=== PATIENT | male | born 1955 | race Caucasian/White ===

== ENCOUNTER 2021-02-22 09:10 | Inpatient (IN) | payer OTHER, SELFPAY ==
[2021-02-22] VITALS (14 sets, daily range): BP systolic 102–121; BP diastolic 59–68; PULSE 101–120; RESP 12–19; TEMP 36.7–37.5; O2SAT 90–94; BMI 25.7
--- NOTE | ~2021-02-22 | XR_ITS ---
EXAMINATION: XR chest 1V portable EXAM DATE: 02/22/2021 09:35 INDICATION: Weakness, fever, PUI, productive cough, symptoms one week. TECHNIQUE: Portable AP frontal chest x-ray was obtained. Comparison is made to prior examination from 03/06/2009. FINDINGS: There is moderate amount of ill-defined right upper lobe, left mid and lower lung zone airs pace disease likely acute infectious process, could be developing COVID pneumonia given history provi ded. Other etiologies also possible radiographically. No pneumothorax or pleural effusion. There are mild bony degenerative changes. Cardiomediastinal silhouette is normal. IMPRESSION: Moderate amount of ill-defined pneumonia. Reviewed, dictated and finalized at location A.
--- NOTE | ~2021-02-22 | CT_ITS ---
EXAMINATION: CTA chest PE protocol DATE: 02/22/2021 10:39 INDICATION: Recent travel to [place]. COVID person of interest. Assess for pulmonary embolism. TECHNIQUE: Computed tomography (CT) pulmonary angiogram of the chest was performed with 100 mL Omnipa que-350 intravenous contrast. Additional 3D reconstructions utilizing coronal maximum intensity proje ction (MIP) were performed. Automated exposure control and iterative reconstruction technique were em ployed. The dose-length product was 448.13 mGy-cm. COMPARISON: None FINDINGS: Excellent contrast opacification of the pulmonary arteries. There is mild streak artifact from dense contrast in the superior vena cava and right atrium. Mild scattered respiratory motion artifact which mildly decreases sensitivity in some of the smaller subsegmental pulmonary arteries at the left lowe r lung zone. No pulmonary embolism. Patchy centrilobular groundglass opacities and consolidation pred ominantly in the right upper lobe, lingula and left lower lobe with more subtle opacities in the righ t lower lobe consistent with multifocal pneumonia with pattern consistent with COVID. No septal line thickening to suggest pulmonary edema. No pleural effusion or pneumothorax. Heart size is normal. No pericardial effusion. Thoracic aorta is normal caliber with no dissection. No pathologically enlarged thoracic lymphadenopathy. Visualized upper abdomen is unremarkable. Severe lower cervical and mild t o moderate thoracic spondylosis. Several chronic compression fractures with mild vertebral body heigh t loss in the mid to lower thoracic spine. IMPRESSION: 1. Patchy bilateral lung disease with appearance most suspicious for COVID pneumonia. Differential wo uld include less likely pulmonary edema or hypersensitivity pneumonitis. 2. No pulmonary embolism. Reviewed, dictated and finalized at location A. IMPRESSION: 1. Patchy bilateral lung disease with appearance most suspicious for COVID pneu monia. Differential would include less likely pulmonary edema or hypersensitivi ty pneumonitis. 2. No pulmonary embolism.
--- NOTE | ~2021-02-22 | XR_ITS ---
EXAMINATION: XR chest 2V EXAM DATE: 02/26/2021 11:12 INDICATION: Pneumonia follow-up. Symptoms improved. TECHNIQUE: Frontal and lateral projections of the chest obtained and reviewed. Comparison is made to prior examination from 02/22/2021. FINDINGS: Again there is ill-defined bilateral airspace disease mostly in the right upper lobe and l eft lower lobe consistent with pneumonia. There may be slightly more confluent appearance to the righ t upper lobe opacity. Overall amount of airspace disease not appreciably changed. No pneumothorax or pleural effusion. Cardiomediastinal silhouette is normal. There are no osseous abnormalities identifi ed. IMPRESSION: Bilateral pneumonia, more confluence in the right upper lobe but overall quantity not si gnificant changed. Please note that radiographic improvement may lag behind clinical improvement. Reviewed, dictated and finalized at location A. IMPRESSION: Bilateral pneumonia, more confluence in the right upper lobe but o verall quantity not significant changed. Please note that radiographic improvem ent may lag behind clinical improvement.
--- NOTE | ~2021-02-22 | XR_ITS ---
XR abdomen/kub 1V DATE: 02/24/2021 23:09 INDICATION: Abdominal distention TECHNIQUE: Portable supine AP views COMPARISON: 03/05/2019 CT abdomen pelvis 03/06/2009 gallbladder ultrasound FINDINGS: Surgical clips, right upper quadrant, consistent with cholecystectomy. There are numerous nondilated gas distended small bowel segments as well as gaseous distention of the right colon. No apparent bowel obstruction No visceromegaly or significant abnormal calcification is noted. Patchy bilateral pulmonary infiltrates are noted. IMPRESSION: Patchy bilateral pulmonary infiltrates Nondilated gas containing segments of small and large bowel, without apparent obstruction Reviewed, dictated and finalized at Location A. Reviewed, dictated and finalized at location A. IMPRESSION: Patchy bilateral pulmonary infiltrates Nondilated gas containing segments of small and large bowel, without apparent o bstruction
--- NOTE | 2021-02-22 09:23 | ECG_ITS ---
Measurements Intervals [place] Rate: 114 P: 65 KS: 124 QRS: 70 QRSD: 86 T: 25 QT: 308 QTc: 425 Interpretive Statements SINUS TACHYCARDIA BORDERLINE ST-T WAVE ABNORMALITY- ANT/INF LEADS ABNORMAL ECG Electronically Signed On 02-22-2021 10:34:53 CDT by Jose Arredondo D.O.
[2021-02-22] MEDS: ACETAMINOPHEN 500 MG TABLET 1000 MG PO (09:30)
[2021-02-22] MEDS: SODIUM CHLORIDE 0.9% IV 1,000 ML 999 ML IV CONT ×2 (09:31→10:46)
--- NOTE | 2021-02-22 09:41 | ED.WEAKNESS ---
HPI - Weakness General Chief complaint: Weakness Stated complaint: Multiple Complaints Time Seen by Provider: 02/22/21 09:15 Source: patient Mode of arrival: ambulatory Limitations: no limitations History of Present Illness HPI Narrative: Patient is a 65-year-old male presenting from [place] urgent care for evaluation of fever, myalgias, cough. Patient states that he has felt unwell since February 19, when he developed rhinorrhea, congestion, chills. Patient with fever of T-max 101 Fahrenheit over the weekend. Patient reports shortness of breath, does report productive cough. He denies chest pain. No pleuritic pain. No rash or lower extremity swelling. Patient did recently travel to [place], return to the [facility] January 25. States that when he was in [place] he did develop a 2-day gastrointestinal illness with vomiting that resolved on its own. Patient is vaccinated for Covid, completed Medicare in a series in June of this year. Has not had a booster at this point. Patient states that he was swabbed at the urgent care with a negative antigen test, and they did send a PCR test as well. Patient reports decreased oral intake over the past 48 hours. He reports generalized fatigue, malaise, myalgias. Related Data Home Medications Medication Instructions Recorded Confirmed No Home Medications 02/22/21 02/22/21 Allergies Allergy/AdvReac Type Severity Reaction Status Date / Time ciprofloxacin Allergy Unknown Skin Verified 02/22/21 09:21 Reaction Review of Systems Review of Systems: CONSTITUTIONAL: Reports fever and chills EYES: Denies visual changes, redness, or discharge. ENT: Reports rhinorrhea and congestion, denies sore throat or otalgia CARDIOVASCULAR: Denies chest pain, palpitations, or edema. RESPIRATORY: Reports cough and shortness of breath GASTROINTESTINAL: Denies abdominal pain, nausea, vomiting, or diarrhea. GENITOURINARY: Denies dysuria or hematuria. SKIN: Denies rash or itching. MUSCULOSKELETAL: Denies back pain, joint pain, reports myalgias NEUROLOGIC: Denies headache, numbness, reports feeling diffusely weak without focal deficits [facility] Past Medical History Medical History (Updated 02/22/21 @ 11:20 by Viki Cagle MD) Leg fracture, left Family History Family History (Updated 03/16/18 @ 15:45 by DOCTOR UNKNOWN) Father Malignant neoplasm of prostate Social History Social History Smoking status: Never smoker Alcohol intake: current Exam Narrative: GENERAL: Awake, alert, conversant HEAD: Normocephalic, atraumatic. EYES: PERRLA and EOMI. ENT: Nares clear, no rhinorrhea or epistaxis. Mucous membranes moist. NECK: Supple. CHEST: No respiratory distress, breathing even and non labored, lungs are clear to auscultation bilaterally, no wheezing HEART: Tachycardic rate, sinus rhythm ABDOMEN:Non distended, non tender EXTREMITIES: Normal range of motion. No edema. SKIN: Warm, dry, no rash. NEURO:No focal deficits. Alert and oriented x3 Course Vital Signs Vital signs: Vital Signs Pulse Rate 120 H 02/22/21 09:16 Respiratory Rate 18 02/22/21 09:16 Temperature 37.4 C 02/22/21 09:18 Pulse Rate 111 H 02/22/21 10:00 Respiratory Rate 17 02/22/21 10:00 Blood Pressure 104/66 02/22/21 09:46 Pulse Oximetry 94 02/22/21 09:18 MDM - Weakness MDM Narrative Medical decision making narrative: Patient presenting for evaluation of cough, shortness of breath, myalgias. At the time of assessment, ABCs are intact, vital signs are notable for tachycardic rate, no hypotension, patient is afebrile. While speaking with me, oxygen saturations are 90 to 91% on room air. Patient is not in any significant respiratory distress. Exam is relatively reassuring although the patient does have rhinorrhea. IV access obtained and labs were drawn. Laboratory results are notable for a leukocytosis with left shift, very
[2021-02-22 09:51] LABS: Basophils Percent Auto 0.2 % (0.2-1.2); Immature Granulocyte Percent A 0.7 % (0-0.5); Immature Platelet Fraction Pct 9.1 % (0.9-11.2); Lymphocytes Absolute Auto 0.87 K/mm3 (0.9-3.2); Lymphocytes Percent Auto 6.4 % (18.3-44.2); Mean Corpuscular HGB Conc 33.3 g/dl (32-36); Mean Corpuscular Hemoglobin 33.9 pg (26-34); Mean Corpuscular Volume 101.7 fl (80-100); Mean Platelet Volume 11.3 fl (7.4-10.4); Monocytes Absolute Auto 0.4 K/mm3 (0.1-0.6); Monocytes Percent Auto 3.2 % (2.6-8.5); Neutrophils Absolute Auto 12.1 K/mm3 (1.3-6.7); Neutrophils Percent Auto 89.5 % (45.5-73.1); Platelet Count Result 93 k/mm3 (150-375); Red Blood Count 4.13 M/mm3 (4.6-6.20); Red Cell Distribution Width 13.5 % (11.5-14.5); White Blood Count 13.6 K/mm3 (4.5-10.0)
[2021-02-22 10:21] LABS: Alanine Aminotransferase 23 U/L (4-50); Alkaline Phosphatase 42 U/L (38-126); Anion Gap 9 mmol/L (8-16); Aspartate Amino Transferase 31 U/L (17-59); Bilirubin,Total 3.7 mg/dL (0.2-1.3); Blood Urea Nitrogen 17 mg/dL (9-20); Calcium 8.7 mg/dL (8.4-10.2); Carbon Dioxide 27 mmol/L (22-30); Chloride 101 mmol/L (98-107); Estimated CRCL calculation 65 ml/min; Estimated Glomerular Filt Rate > 60; Glucose 111 mg/dL (65-110); Potassium 3.7 mmol/L (3.4-5.0); Sodium 137 mmol/L (137-145)
[2021-02-22 10:21] LABS: Lactic Acid Reflex 2.3 mmol/L (0.7-2.1)
[2021-02-22 10:33] LABS: Troponin I < 0.012 ng/mL (0.000-0.034)
--- NOTE | 2021-02-22 11:57 | ADMGEN ---
This patient, Tobi Deras, was admitted to [facility] Surg Room 321-01. Patient/family oriented to hospital policies and general routines including ID bracelet, bed and alarms, visiting hours, pain management, procedures, bathroom and other care routines, personal items, smoking policy, room service/diet, and visiting hours. Information on how to activate the Rapid Response Team has been discussed. Patient/Family are encouraged to report perceived risks to care and to ask questions if they do not understand what they are told or what they should do.
[2021-02-22 12:02] LABS: Add Urine Microscopic? NO; Appearance Urine Clear (Clear); Bilirubin Urine Negative (Negative); Blood Urine Negative (Negative); Color Urine Yellow (Yellow); Glucose Urine UA Negative (Negative); Ketones Urine Negative (Negative); Leukocyte Esterase Ur Negative LEU/UL (Negative); Nitrate Urine Negative (Negative); Protein Urine Negative (Negative); Urobilinogen Urine Negative mg/dL (<2.0)
[2021-02-22 12:45] LABS: Reflex Lactic Acid Yes or No Add Lactic
[2021-02-22 13:14] LABS: Specific Grav Ur 1.047 (1.001-1.035)
[2021-02-22 13:16] LABS: Lactic Acid 2.4 mmol/L (0.7-2.1)
[2021-02-22] MEDS: SODIUM CHLORIDE 0.9% IV 500 ML 999 ML IV CONT (13:32)
[2021-02-22] MEDS: ACETAMINOPHEN 325 MG TABLET 650 MG PO ×2 (14:19→21:02)
--- NOTE | 2021-02-22 15:00 | PM.IMHP ---
H&P: HPI History of Present Illness Date/Time: 02/22/21 15:00 Chief Complaint: Fever, myalgias, cough. Narrative: This is a very pleasant, previously healthy 65-year-old male who presented to the emergency department earlier this morning from home for evaluation of fever, myalgias, and cough. He has not been feeling well for the last several days with multiple symptoms to include rhinorrhea, sinus congestion, chills, fever to 101? F, cough productive of dark phlegm, body aches, and mild shortness of breath. He was seen at a local urgent care at which time he had a negative rapid COVID test but he was referred to the emergency department for further evaluation. A chest x-ray done on arrival showed a moderate amount of ill-defined pneumonia and a subsequent CTA of the chest showed patchy bilateral lung disease suspicious for COVID pneumonia. The patient did receive the Moderna vaccination series this past spring though he has not yet had a booster at this point. He and his traveled to [place] last month and returned to the [facility] on January 25. He does mention having a GI illness for a couple of days while in [place] but that was self-limiting. He has not had any sick contacts or known exposure to those positive for COVID-19 but was recently at a large wedding. He denies anosmia and dysgeusia but does report that food has been tasting ?salty? for the past couple of days. He denies chest pain, pleuritic pain, wheezing, vomiting, and diarrhea. Review of Systems Review of Systems: Twelve systems were reviewed with pertinent positives and negatives as per HPI. Denies dysphagia and concerns for aspiration. No orthopnea, PND, or lower extremity edema. No history of venous thromboembolism. Except as documented, all other systems were reviewed and are negative. [facility] Past Medical History Medical History (Updated 02/22/21 @ 21:40 by Cornelia Burciaga PA-C) Hepatitis A (1992) History of seizure Leg fracture, left Surgical History Surgical History (Updated 02/22/21 @ 21:37 by Cornelia Burciaga PA-C) History of laparoscopic cholecystectomy History of left inguinal hernia repair History of open reduction and internal fixation (ORIF) procedure Left lower extremity. History of tonsillectomy Family History Family History Father Malignant neoplasm of prostate Social History Social History (Updated 02/22/21 @ 21:37 by Cronelia Burciaga PA-C) Social History: The patient lives in [place] with his Rashmi. He works for [employer]. Lifelong nonsmoker. No alcohol or illicit substance abuse. He designates his Rashmi as his surrogate decision maker and he wishes to be a full code. Meds Home Medications and Allergies Home Medications Medication Instructions Recorded Confirmed Type No Home Medications 02/22/21 02/22/21 History Allergies Allergy/AdvReac Type Severity Reaction Status Date / Time ciprofloxacin Allergy Unknown Skin Verified 02/22/21 12:11 Reaction Vital Signs Vital Signs - 24 hr 02/22/21 09:16 02/22/21 09:17 02/22/21 09:18 Temperature 99.3 F Pulse Rate 120 H 111 H 114 H Respiratory Rate 18 18 16 Blood Pressure 121/62 121/62 Pulse Oximetry 94 02/22/21 09:22 02/22/21 09:30 02/22/21 09:31 Temperature Pulse Rate 118 H 115 H 113 H Respiratory Rate 19 18 Blood Pressure 109/62 Pulse Oximetry 02/22/21 09:45 02/22/21 09:46 02/22/21 10:00 Temperature Pulse Rate 113 H 108 H 111 H Respiratory Rate 15 14 17 Blood Pressure 104/66 Pulse Oximetry 02/22/21 11:55 02/22/21 12:20 02/22/21 13:33 Temperature 98.1 F Pulse Rate 103 H 103 H 103 H Respiratory Rate 18 12 12 Blood Pressure 110/66 Pulse Oximetry 92 94 94 Exam Narrative: General: Moderately ill-appearing male sitting up in bed. Weight: 93.4 kg. BMI: 25.7. HEENT: Normocephalic, atraumatic. PERRL, EOMI. Sclerae anicteric. Conjunctiv
[2021-02-22 16:20] LABS: SARS-CoV-2 RNA PCR Negative
[2021-02-22] MEDS: ONDANSETRON INJ 4 MG/2 ML VIAL IV PUSH (21:04)
[2021-02-23 06:00] VITALS: BP 112/68; PULSE 100; RESP 22; TEMP 37.4; O2SAT 91
[2021-02-23 06:07] LABS: Hematocrit 35.4 % (42.0-52.0); Hemoglobin 11.8 g/dL (14.0-18.0); Immature Platelet Fraction Pct 8.5 % (0.9-11.2); Mean Corpuscular HGB Conc 33.3 g/dl (32-36); Mean Corpuscular Hemoglobin 33.9 pg (26-34); Mean Corpuscular Volume 101.7 fl (80-100); Mean Platelet Volume 10.6 fl (7.4-10.4); Platelet Count Result 78 k/mm3 (150-375); Red Blood Count 3.48 M/mm3 (4.6-6.20); Red Cell Distribution Width 13.5 % (11.5-14.5); White Blood Count 14.9 K/mm3 (4.5-10.0)
[2021-02-23 06:13] LABS: Lactic Acid Reflex 1.6 mmol/L (0.7-2.1)
[2021-02-23] MEDS: ACETAMINOPHEN 325 MG TABLET 650 MG PO ×3 (07:50→18:12)
[2021-02-23 08:00] VITALS: PULSE 100; RESP 22; O2SAT 91
[2021-02-23 08:09] LABS: Alanine Aminotransferase 20 U/L (4-50); Albumin Level 3.2 g/dL (3.5-5.1); Alkaline Phosphatase 39 U/L (38-126); Anion Gap 6 mmol/L (8-16); Aspartate Amino Transferase 32 U/L (17-59); Bilirubin Indirect 2.1 mg/dL (0-1.1); Bilirubin,Total 2.3 mg/dL (0.2-1.3); Blood Urea Nitrogen 16 mg/dL (9-20); CRP 31.7 mg/dL (<1.0); Carbon Dioxide 26 mmol/L (22-30); Chloride 105 mmol/L (98-107); Estimated CRCL calculation 88 ml/min; Estimated Glomerular Filt Rate > 60; Glucose 104 mg/dL (65-110); Lactate Dehydrogenase 452 U/L (313-618); Magnesium 1.6 mg/dL (1.6-2.3); Potassium 3.7 mmol/L (3.4-5.0); Sodium 137 mmol/L (137-145)
[2021-02-23] MEDS: guaiFENesin 600 MG/DEXTROMETHORPHAN 30 MG SR TAB 12 HR 1 TAB PO ×2 (09:00→20:58)
[2021-02-23] MEDS: ONDANSETRON INJ 4 MG/2 ML VIAL IV PUSH (11:04)
--- NOTE | 2021-02-23 11:59 | PC.NURSE ---
Called MD Del Angel resulting positive anaerobic blood culture result.
--- NOTE | 2021-02-23 12:26 | PM.IMPN ---
Progress Note: A&P Assessment and Plan (1) Sepsis: Code(s): A41.9 - Sepsis, unspecified organism Status: Acute (2) Pneumonia: Code(s): J18.9 - Pneumonia, unspecified organism Status: Acute (3) Thrombocytopenia: Code(s): D69.6 - Thrombocytopenia, unspecified Status: Acute (4) Person under investigation for COVID-19: Code(s): Z20.822 - Contact with and (suspected) exposure to COVID-19 Status: Acute (5) Hyperbilirubinemia: Code(s): E80.6 - Other disorders of bilirubin metabolism Status: Acute Additional Plan Sepsis Multifocal pneumonia suspicious for COVID but COVID test came back negative x2 the and pneumococcal antigen has been sent which is pending influenza test has been done in the urgent care per patient which came back negative as well COVID vaccinated with Moderna Recent travel to [place] Lactic acidosis this has resolved with hydration Person under investigation for COVID-19 negative test in the urgent care earlier yesterday Thrombocytopenia Elevated CRP and ferritin level Bacteremia with Gram-positive cocci in clusters 1/2 bottles could be a contaminant will cover with vancomycin until finalization Hyperbilirubinemia mostly indirect likely Gilbert's disease DVT prophylaxis SCDs due to thrombocytopenia Subjective Date/time seen: 02/23/21 12:26 Interval history: HPI:This is a very pleasant, previously healthy 65-year-old male who presented to the emergency department earlier this morning from home for evaluation of fever, myalgias, and cough. He has not been feeling well for the last several days with multiple symptoms to include rhinorrhea, sinus congestion, chills, fever to 101? F, cough productive of dark phlegm, body aches, and mild shortness of breath. He was seen at a local urgent care at which time he had a negative rapid COVID test but he was referred to the emergency department for further evaluation. A chest x-ray done on arrival showed a moderate amount of ill-defined pneumonia and a subsequent CTA of the chest showed patchy bilateral lung disease suspicious for COVID pneumonia. The patient did receive the Moderna vaccination series this past spring though he has not yet had a booster at this point. He and his traveled to [place] last month and returned to the [facility] on January 25. He does mention having a GI illness for a couple of days while in [place] but that was self-limiting. He has not had any sick contacts or known exposure to those positive for COVID-19 but was recently at a large wedding. He denies anosmia and dysgeusia but does report that food has been tasting ?salty? for the past couple of days. He denies chest pain, pleuritic pain, wheezing, vomiting, and diarrhea. Interval history: Is still have quite a bit of myalgia and nasal blockage. Remains afebrile off appetite is low does not have good taste or smell anything. Denies any shortness of breath no chest pain Exam Narrative: General: Ill appearing male sitting up in bed not in acute distress HEENT: Normocephalic, atraumatic. PERRL, EOMI. Sclerae anicteric. Conjunctiva mildly injected. Tacky mucous membranes. Neck: Supple. No adenopathy or JVD. Respiratory: Respirations are even and nonlabored. He is speaking in full sentences. Crackles heard throughout both lungs. Cardiovascular: Regular rate and rhythm with S1-S2. Gastrointestinal: Abdomen is soft, nontender, and nondistended with positive bowel sounds. Skin: Warm and dry. No rash or lesions on limited exam. Extremities: No cyanosis, clubbing, or edema. Radial and pedal pulses intact. Neurological: Alert. Cranial nerves 2-12 are grossly intact. No gross focal deficits to casual conversation. Psychiatric: Pleasant and cooperative with normal mood and affect. Judgment and insight intact. Objective Data Vital Signs Vital Signs: Vital Signs - 24 hr 02/22/21 13:33 02/22/21 17:47 02/22/21 22:00 Temperature 99.5 F 98.
[2021-02-23] MEDS: FLUTICASONE PROPIONATE 0.05% NA SPR 16 GM BTL (*BKC) 1 SPRAY NASAL ×2 (13:57→20:58)
[2021-02-23 14:00] VITALS: BP 113/76; PULSE 89; RESP 18; TEMP 36.7; O2SAT 95
--- NOTE | 2021-02-23 16:43 | PC.NURSE ---
UA and sputum collected and send to lab this shift
[2021-02-23] MEDS: BENZONATATE 100 MG CAPSULE 200 MG PO (17:13)
[2021-02-23] MEDS: SACCHAROMYCES BOULARDII 250 MG CAPSULE PO (20:58)
[2021-02-23] MEDS: SIMETHICONE 80 MG TAB.CHEW PO (20:58)
[2021-02-23] MEDS: ZOLPIDEM TARTRATE (*CRX) 5 MG TABLET PO (20:58)
[2021-02-23 22:00] VITALS: BP 105/65; PULSE 87; RESP 18; TEMP 36.2; O2SAT 96
[2021-02-24] MEDS: ACETAMINOPHEN 325 MG TABLET 650 MG PO ×2 (02:16→10:58)
[2021-02-24 06:00] VITALS: BP 117/70; PULSE 83; RESP 20; TEMP 36.4; O2SAT 95
[2021-02-24 06:10] LABS: Basophils Percent Auto 0.2 % (0.2-1.2); Eosinophils Percent Auto 0.2 % (0-4.4); Hematocrit 35.1 % (42.0-52.0); Hemoglobin 11.6 g/dL (14.0-18.0); Immature Granulocyte Absolute 0.05 K/mm3 (0.00-0.031); Immature Granulocyte Percent A 0.6 % (0-0.5); Lymphocytes Absolute Auto 0.94 K/mm3 (0.9-3.2); Lymphocytes Percent Auto 10.9 % (18.3-44.2); Mean Corpuscular Hemoglobin 33.7 pg (26-34); Mean Platelet Volume 10.7 fl (7.4-10.4); Monocytes Absolute Auto 0.2 K/mm3 (0.1-0.6); Monocytes Percent Auto 2.6 % (2.6-8.5); Neutrophils Absolute Auto 7.4 K/mm3 (1.3-6.7); Neutrophils Percent Auto 85.5 % (45.5-73.1); Platelet Count Result 79 k/mm3 (150-375); Red Blood Count 3.44 M/mm3 (4.6-6.20); Red Cell Distribution Width 13.4 % (11.5-14.5); White Blood Count 8.6 K/mm3 (4.5-10.0)
[2021-02-24 06:14] LABS: Alanine Aminotransferase 19 U/L (4-50); Albumin Level 3.2 g/dL (3.5-5.1); Alkaline Phosphatase 42 U/L (38-126); Anion Gap 8 mmol/L (8-16); Aspartate Amino Transferase 38 U/L (17-59); Bilirubin,Total 1.8 mg/dL (0.2-1.3); Blood Urea Nitrogen 14 mg/dL (9-20); Calcium 8.2 mg/dL (8.4-10.2); Carbon Dioxide 24 mmol/L (22-30); Chloride 105 mmol/L (98-107); Estimated CRCL calculation 97 ml/min; Estimated Glomerular Filt Rate > 60; Glucose 96 mg/dL (65-110); Potassium 3.7 mmol/L (3.4-5.0); Sodium 137 mmol/L (137-145)
[2021-02-24 08:00] VITALS: O2SAT 95
[2021-02-24] MEDS: BENZONATATE 100 MG CAPSULE 200 MG PO ×3 (09:00→16:26)
[2021-02-24] MEDS: FLUTICASONE PROPIONATE 0.05% NA SPR 16 GM BTL (*BKC) 1 SPRAY NASAL ×2 (09:01→21:36)
[2021-02-24] MEDS: SACCHAROMYCES BOULARDII 250 MG CAPSULE PO ×3 (09:01→16:26)
[2021-02-24] MEDS: guaiFENesin 600 MG/DEXTROMETHORPHAN 30 MG SR TAB 12 HR 1 TAB PO ×2 (09:01→21:34)
--- NOTE | 2021-02-24 10:07 | PM.IMPN ---
Progress Note: A&P Assessment and Plan (1) Sepsis: Code(s): A41.9 - Sepsis, unspecified organism Status: Acute (2) Pneumonia: Code(s): J18.9 - Pneumonia, unspecified organism Status: Acute (3) Thrombocytopenia: Code(s): D69.6 - Thrombocytopenia, unspecified Status: Acute (4) Person under investigation for COVID-19: Code(s): Z20.822 - Contact with and (suspected) exposure to COVID-19 Status: Acute (5) Hyperbilirubinemia: Code(s): E80.6 - Other disorders of bilirubin metabolism Status: Acute Additional Plan 02/23/21 Sepsis Multifocal pneumonia suspicious for COVID but COVID test came back negative x2 the Junel and pneumococcal antigen has been sent which is pending influenza test has been done in the urgent care per patient which came back negative as well COVID vaccinated with Moderna Recent travel to [place] Lactic acidosis this has resolved with hydration Person under investigation for COVID-19 negative test in the urgent care earlier yesterday Thrombocytopenia Elevated CRP and ferritin level Bacteremia with Gram-positive cocci in clusters 1/2 bottles could be a contaminant will cover with vancomycin until finalization Hyperbilirubinemia mostly indirect likely Gilbert's disease DVT prophylaxis SCDs due to thrombocytopenia 02/24/21 Patient doing okay have reviewed with him possible differential diagnosis and the need for further ongoing workup. Patient is in agreement. Repeat COVID PCR Legionella, mycoplasma, influenza DC vancomycin Patient denies recurrence difficulty swallowing however does report that recently had difficulty swallowing sandwich which improved by him slowing down and chewing the food more. Silent aspiration is still for consideration Will order in BS and follow-up with GI depending on results monitor VS am labs supportive care Subjective Date/time seen: 02/24/21 10:07 Patient doing okay continues to have respiratory symptoms unclear source. Pulmonary has been consulted will continue further workup as per their direction. Exam Narrative: GEN: NAD, AAOx3 cooperative HEENT: NCAT, MMM, EOMI Neck: no JVD Lungs: No acute distress symmetric chest rise Abd: soft, NT, ND Ext: moves all, no cyanosis, no clubbing, no edema Neuro: Cranial nerves intact no focal neurological deficits appreciated Psych: Mood and affect congruent judgment insight intact Objective Data Vital Signs Vital Signs: Vital Signs - 24 hr 02/23/21 14:00 02/23/21 22:00 02/24/21 06:00 Temperature 98.1 F 97.2 F L 97.5 F L Pulse Rate 89 87 83 Respiratory Rate 18 18 20 Blood Pressure 113/76 105/65 117/70 Pulse Oximetry 95 96 95 Intake/Output Intake/Output: Intake & Output 02/21/21 02/22/21 02/23/21 02/24/21 23:59 23:59 23:59 23:59 Intake Total 3330 1510 850 Output Total 400 Balance 3330 1110 850 Meds/Results Medications: Active Medications Generic Name Dose Route Start Last Admin Trade Name Freq PRN Reason Stop Dose Admin Acetaminophen 650 mg 02/22/21 11:12 02/24/21 02:16 Acetaminophen 325 Mg Tablet PO 650 mg Q4H PRN Administration Mild Pain (1-3) or Fever Albuterol 2 puff 02/22/21 21:41 Albuterol Sulfate (*Sp) Aerosol 1 Puff INHALATION QIDRT PRN Shortness Of Breath Benzonatate 200 mg 02/23/21 17:00 02/24/21 09:00 Benzonatate 100 Mg Capsule PO 200 mg TID APRIL Administration Fluticasone Propionate 1 spray 02/23/21 12:50 02/24/21 09:01 Fluticasone Propionate 0.05% Na Spr 16 Gm Btl (*Bkc) NASAL 1 spray Q12HR APRIL Administration Guaifenesin/Dextromethorphan 1 tab 02/23/21 09:00 02/24/21 09:01 Guaifenesin 600 Mg/Dextromethorphan 30 Mg Sr Tab 12 Hr PO 1 tab Q12HR APRIL Administration Ceftriaxone Sodium/Dextrose 1 gm in 50 mls @ 100 mls/hr 02/23/21 09:00 02/24/21 08:57 Rocephin 1 Gm/D5w 50 Ml IVPB 100 mls/hr Q24H APRIL Administration Azithromycin 500 mg in 250 mls @ 250 m
[2021-02-24 12:25] LABS: Folic Acid 12.8 ng/mL (2.76->20)
--- NOTE | 2021-02-24 12:46 | PM.CNPUL ---
Assessment and Plan Assessment and plan (1) Pneumonia: Qualifiers: Pneumonia type: due to unspecified organism Laterality: bilateral Lung location: lower lobe of lung Qualified Code(s): J18.9 - Pneumonia, unspecified organism Code(s): J18.9 - Pneumonia, unspecified organism Status: Acute Assessment and Plan: 65-year-old man with a 3 day history of muscle aches, fever, cough and nasal congestion, bilateral pulmonary infiltrates with distribution in the right upper lobe and also left lower lobe. The patient had a negative PCR test but the clinical presentation and CT findings are compatible with possible COVID-19 infection. The differential diagnosis also includes community acquired or atypical pneumonia related to viral or other organisms like legionella, mycoplasma. Given history of dysphagia I would also consider possible aspiration pneumonitis although nasal congestion is not usual symptom in that setting. Plan is as follows: I would check MRSA screening and discontinue vancomycin. Repeat PCR testing for COVID-19 infection. W/up for pneumococcal pneumonia, Legionella and Mycoplasma if Covid 19 PCR is negative. Consider work up of dysphagia and start patient on sc heparin for DVT prophylaxis. Case was discussed with hospitalist. (2) Dysphagia: Qualifiers: Dysphagia type: unspecified Qualified Code(s): R13.10 - Dysphagia, unspecified Code(s): R13.10 - Dysphagia, unspecified Status: Acute History of Present Illness History of Present Illness Consult date: 02/24/21 Chief complaint: Pneumonia Narrative: This 65-year-old man presented with 3 day history of muscle aches fever nasal congestion and cough. Patient was in his usual was state of health until 3 days prior to admission when he started having muscle aches nasal congestion mild cough mostly nonproductive and fatigue. The patient was seen at a local urgent care where a COVID test was negative. He then presented to the emergency room were underwent further testing with chest CT that showed bilateral patchy infiltrates primarily in the right upper lobe and also in the left lower lobe, suspicious for COVID 19 infection. Patient was started on triple antibiotics for possible community-acquired pneumonia. COVID PCR test came back negative. Currently the patient is doing better, has no fever but continues to have nasal congestion and mild coughing. He is not on supplemental oxygen. His previous medical history was essentially negative. He traveled to [place] approximately 1 month ago. He has been vaccinated with the Moderna vaccine in June of 2020. He has not had the 3rd dose yet. Upon questioning the patient stated that he has had intermittent dysphagia especially when eating sandwiches. He has no history of choking of food or cough with during meals. He also has acid reflux disease which is mostly intermittent, on no treatment Review of Systems Review of Systems: The patient reported no weight changes. Patient has had good appetite. Patient has no shortness of Breath, chest pain palpitations or orthopnea. Patient described some abdominal discomfort on and off. He had diarrhea when in [place] last month. Patient has no urinary complaints. Patient not having lower extremity edema. [facility] Past Medical History Medical History (Updated 02/24/21 @ 12:56 by Franky Forbes MD) Hepatitis A (1992) History of seizure Leg fracture, left Surgical History Surgical History (Updated 02/22/21 @ 21:37 by Cornelia Burciaga PA-C) History of laparoscopic cholecystectomy History of left inguinal hernia repair History of open reduction and internal fixation (ORIF) procedure Left lower extremity. History of tonsillectomy Family History Family History Father Malignant neoplasm of prostate Social History Social History (Updated 02/22/21 @ 21:37 by Cornelia Hatfield
[2021-02-24 14:00] VITALS: BP 113/69; PULSE 73; RESP 20; TEMP 36.8; O2SAT 96
[2021-02-24 20:00] VITALS: BP 120/67; PULSE 81; RESP 18; TEMP 36.7; O2SAT 96
[2021-02-24] MEDS: ONDANSETRON INJ 4 MG/2 ML VIAL IV PUSH (21:34)
[2021-02-24 23:32] VITALS: BP 117/52; PULSE 87; RESP 18; TEMP 36.8; O2SAT 98
[2021-02-25] VITALS (7 sets, daily range): BP systolic 107–126; BP diastolic 56–77; PULSE 80–93; RESP 17–20; TEMP 36.4–36.9; O2SAT 95–100
[2021-02-25] MEDS: MELATONIN 5 MG TABLET PO ×2 (00:23→20:51)
[2021-02-25] MEDS: CALCIUM CARBONATE (TUMS) 500 MG (200 MG ELEMENTAL) PO ×3 (00:23→20:26)
[2021-02-25] MEDS: FLUTICASONE PROPIONATE 0.05% NA SPR 16 GM BTL (*BKC) 1 SPRAY NASAL ×2 (08:27→20:52)
[2021-02-25] MEDS: SACCHAROMYCES BOULARDII 250 MG CAPSULE PO ×3 (08:32→18:30)
[2021-02-25] MEDS: ENOXAPARIN 40 MG/0.4 ML SYRINGE SUB-Q (08:32)
[2021-02-25] MEDS: guaiFENesin 600 MG/DEXTROMETHORPHAN 30 MG SR TAB 12 HR 1 TAB PO ×2 (08:32→20:51)
[2021-02-25] MEDS: BENZONATATE 100 MG CAPSULE 200 MG PO ×3 (08:32→18:30)
[2021-02-25] MEDS: ACETAMINOPHEN 325 MG TABLET 650 MG PO (08:41)
--- NOTE | 2021-02-25 09:31 | PCSTNOTE ---
Therapist saw this patient at bedside during his breakfast meal and while taking pills. A Modified Barium Swallow (MBS) study was ordered and therapist wanted to discuss patient's complaints prior to MBS. Patient took one bite of hines and placed on tongue and immediately coughed; stated he was not attempting to swallow at that time. Took several bites of omani toast, pills, and several sips of orange juice in my presence. No coughing was noted again during the swallows. Patient was instructed in the use of head flexion to assist with swallowing; he demonstrated understanding. Patient was noted to have somewhat immediate burping after swallowing and complained of feeling either the food or acid reflux in the mid-chest area. Therapist discussed observations with Dr. Holloway who recommended GI consult and holding off on MBS at this time. No further Speech Therapy is indicated however therapist will continue to review chart and consult with nursing as indicated.
--- NOTE | 2021-02-25 09:37 | PCSTNOTE ---
Therapist attempted to complete Bedside Swallow Evaluation and Communication Evaluation however nurse was present and administered patient's Lovenox shot to the belly, hoping to arouse and awaken the patient and nurse reported patient did not flinch. Requested ST to wait until later. Nurse will notify therapist if patient arouses enough to attempt evaluations.
--- NOTE | 2021-02-25 11:02 | PM.IMPN ---
Progress Note: A&P Assessment and Plan (1) Sepsis: Code(s): A41.9 - Sepsis, unspecified organism Status: Acute (2) Pneumonia: Qualifiers: Laterality: bilateral Lung location: lower lobe of lung Pneumonia type: due to unspecified organism Qualified Code(s): J18.9 - Pneumonia, unspecified organism Code(s): J18.9 - Pneumonia, unspecified organism Status: Acute (3) Thrombocytopenia: Code(s): D69.6 - Thrombocytopenia, unspecified Status: Acute (4) Person under investigation for COVID-19: Code(s): Z20.822 - Contact with and (suspected) exposure to COVID-19 Status: Acute (5) Hyperbilirubinemia: Code(s): E80.6 - Other disorders of bilirubin metabolism Status: Acute Additional Plan 02/23/21 Sepsis Multifocal pneumonia suspicious for COVID but COVID test came back negative x2 the and pneumococcal antigen has been sent which is pending influenza test has been done in the urgent care per patient which came back negative as well COVID vaccinated with Moderna Recent travel to [place] Lactic acidosis this has resolved with hydration Person under investigation for COVID-19 negative test in the urgent care earlier yesterday Thrombocytopenia Elevated CRP and ferritin level Bacteremia with Gram-positive cocci in clusters 1/2 bottles could be a contaminant will cover with vancomycin until finalization Hyperbilirubinemia mostly indirect likely Gilbert's disease DVT prophylaxis SCDs due to thrombocytopenia 02/24/21 Patient doing okay have reviewed with him possible differential diagnosis and the need for further ongoing workup. Patient is in agreement. Repeat COVID PCR Legionella, mycoplasma, influenza DC vancomycin Patient denies recurrence difficulty swallowing however does report that recently had difficulty swallowing sandwich which improved by him slowing down and chewing the food more. Silent aspiration is still for consideration Will order in BS and follow-up with GI depending on results monitor VS am labs supportive care 02/25/21 no overnight events pending results of atypical PNA labs cont current care seen by GI anticipate EGD after recovery from acute medical process pureed diet /liq diet for now pantoprazole/TUMS Subjective Date/time seen: 02/25/21 17:57 feeling better today, mentally more alert, no longer feels sick no overnight events Exam Narrative: GEN: NAD, AAOx3 cooperative HEENT: NCAT, MMM, EOMI Neck: no JVD Lungs: No acute distress symmetric chest rise Abd: soft, NT, ND Ext: moves all, no cyanosis, no clubbing, no edema Neuro: Cranial nerves intact no focal neurological deficits appreciated Psych: Mood and affect congruent judgment insight intact Objective Data Vital Signs Vital Signs: Vital Signs - 24 hr 02/24/21 14:00 02/24/21 20:00 02/24/21 23:32 Temperature 98.2 F 98.0 F 98.3 F Pulse Rate 73 81 87 Respiratory Rate 20 18 18 Blood Pressure 113/69 120/67 117/52 L Pulse Oximetry 96 96 98 02/25/21 04:00 02/25/21 06:00 Temperature 97.6 F 98.4 F Pulse Rate 89 80 Respiratory Rate 20 17 Blood Pressure 107/58 L 108/56 L Pulse Oximetry 96 98 Intake/Output Intake/Output: Intake & Output 02/22/21 02/23/21 02/24/21 02/25/21 23:59 23:59 23:59 23:59 Intake Total 3330 1510 2450 250 Output Total 400 Balance 3330 1110 2450 250 Meds/Results Medications: Active Medications Generic Name Dose Route Start Last Admin Trade Name Freq PRN Reason Stop Dose Admin Acetaminophen 650 mg 02/22/21 11:12 02/25/21 08:41 Acetaminophen 325 Mg Tablet PO 650 mg Q4H PRN Administration Mild Pain (1-3) or Fever Albuterol 2 puff 02/22/21 21:41 Albuterol Sulfate (*Sp) Aerosol 1 Puff INHALATION QIDRT PRN Shortness Of Breath Benzonatate 200 mg 02/23/21 17:00 02/25/21 08:32 Benzonatate 100 Mg Capsule PO 200 mg TID APRIL Administration Calcium Carbonate 200 mg 02/24/21 23:
[2021-02-25 12:15] LABS: Basophils Percent Auto 0.3 % (0.2-1.2); Eosinophils Percent Auto 0.3 % (0-4.4); Hematocrit 34.2 % (42.0-52.0); Hemoglobin 11.7 g/dL (14.0-18.0); Immature Granulocyte Absolute 0.05 K/mm3 (0.00-0.031); Immature Granulocyte Percent A 0.8 % (0-0.5); Immature Platelet Fraction Pct 10.3 % (0.9-11.2); Lymphocytes Absolute Auto 0.99 K/mm3 (0.9-3.2); Mean Corpuscular HGB Conc 34.2 g/dl (32-36); Mean Corpuscular Hemoglobin 33.7 pg (26-34); Mean Corpuscular Volume 98.6 fl (80-100); Mean Platelet Volume 11.3 fl (7.4-10.4); Monocytes Absolute Auto 0.3 K/mm3 (0.1-0.6); Monocytes Percent Auto 4.7 % (2.6-8.5); Neutrophils Absolute Auto 4.8 K/mm3 (1.3-6.7); Neutrophils Percent Auto 77.9 % (45.5-73.1); Platelet Count Result 113 k/mm3 (150-375); Red Blood Count 3.47 M/mm3 (4.6-6.20); Red Cell Distribution Width 13.2 % (11.5-14.5); White Blood Count 6.2 K/mm3 (4.5-10.0)
[2021-02-25 12:34] LABS: Anion Gap 9 mmol/L (8-16); Blood Urea Nitrogen 13 mg/dL (9-20); Calcium 8.4 mg/dL (8.4-10.2); Carbon Dioxide 22 mmol/L (22-30); Chloride 107 mmol/L (98-107); Estimated CRCL calculation 108 ml/min; Estimated Glomerular Filt Rate > 60; Glucose 123 mg/dL (65-110); Magnesium 2.2 mg/dL (1.6-2.3); Potassium 3.4 mmol/L (3.4-5.0); Sodium 138 mmol/L (137-145)
--- NOTE | 2021-02-25 15:33 | WPDGICN ---
Assessment and Plan Assessment and plan (1) Dysphagia: Qualifiers: Dysphagia type: unspecified Qualified Code(s): R13.10 - Dysphagia, unspecified Code(s): R13.10 - Dysphagia, unspecified Status: Acute Assessment and Plan: Patient's symptoms of dysphagia with food particularly more solid food catching mid substernal portion the chest suggest esophageal narrowing. I suspect he has an esophageal web based on his dyspepsia which may represent acid reflux. Plan is for EGD and dilatation. This can be performed as an outpatient. I would wait until his oxygenation has improved in his pneumonia has cleared. This can be done as an outpatient but will reassess him over the next couple days if he remains hospitalized. (2) Indigestion: Code(s): K30 - Functional dyspepsia Status: Acute Assessment and Plan: Patient does complain of indigestion. I suspect this may represent underlying acid reflux. I will start him on Protonix 40 mg p.o. daily as this may help his swallowing as well as his indigestion. (3) Pneumonia: Qualifiers: Laterality: bilateral Lung location: lower lobe of lung Pneumonia type: due to unspecified organism Qualified Code(s): J18.9 - Pneumonia, unspecified organism Code(s): J18.9 - Pneumonia, unspecified organism Status: Acute Assessment and Plan: Patient with pneumonia that has left him somewhat hypoxic. Currently undergoing evaluation to exclude COVID pneumonia. I would defer endoscopic evaluation until his pneumonia has improved to some degree. GI Consult Note Consult date/time: 02/25/21 15:33 HPI: Tobi Deras is a 65 year old male I am asked to see because of dysphagia. Patient reports he has had dysphagia for many years. He currently is admitted the hospital because of increasing shortness of breath. He was found to have to have pulmonic infiltrates on his chest x-ray. He is currently undergoing therapy with antibiotics. And testing is being completed to exclude COVID pneumonia. Patient reports has difficulty swallowing includes anything solid. Bread typically will hang up in the mid chest. Sometimes to the point where he will have difficulty breathing if he eats 1 more bite. This also happens with larger pieces of meat. Typically this will happen in the upper mid chest area. Patient does note occasional indigestion in the epigastric portion of the abdomen. Review of Systems Review of Systems: All systems reviewed & are unremarkable except as noted in HPI and below PMFSH Past Medical History Medical History (Updated 02/25/21 @ 15:37 by Markie Walls MD) Hepatitis A (1992) History of seizure Leg fracture, left Surgical History Surgical History (Updated 02/22/21 @ 21:37 by Cornelia Burciaga PA-C) History of laparoscopic cholecystectomy History of left inguinal hernia repair History of open reduction and internal fixation (ORIF) procedure Left lower extremity. History of tonsillectomy Family History Family History Father Malignant neoplasm of prostate Social History Social History (Updated 02/22/21 @ 21:37 by Cornelia Burciaga PA-C) Social History: The patient lives in [place] with his Rashmi. He works for [employer]. Lifelong nonsmoker. No alcohol or illicit substance abuse. He designates his Rashmi as his surrogate decision maker and he wishes to be a full code. Meds Home Medications and Allergies Home Medications Medication Instructions Recorded Confirmed Type melatonin 10 mg PO HS 02/24/21 02/24/21 History Allergies Allergy/AdvReac Type Severity Reaction Status Date / Time ciprofloxacin Allergy Unknown Skin Verified 02/22/21 12:11 Reaction Vital Signs Vital Signs - 24 hr 02/24/21 20:00 02/24/21 23:32 02/25/21 04:00 Temperature 98.0 F 98.3 F 97.6 F Pulse Rate 81 87 89 Respiratory
[2021-02-25 19:16] LABS: Influenza Control Positive
[2021-02-25 22:24] LABS: SARS-CoV-2 RNA PCR Negative
[2021-02-26 04:01] VITALS: BP 122/70; PULSE 82; RESP 18; TEMP 36.3; O2SAT 99
[2021-02-26 06:34] LABS: Basophils Percent Auto 0.4 % (0.2-1.2); Eosinophils Percent Auto 0.4 % (0-4.4); Hematocrit 35.3 % (42.0-52.0); Hemoglobin 11.8 g/dL (14.0-18.0); Immature Granulocyte Absolute 0.06 K/mm3 (0.00-0.031); Immature Granulocyte Percent A 1.2 % (0-0.5); Lymphocytes Absolute Auto 1.08 K/mm3 (0.9-3.2); Lymphocytes Percent Auto 22.1 % (18.3-44.2); Mean Corpuscular HGB Conc 33.4 g/dl (32-36); Mean Corpuscular Hemoglobin 33.1 pg (26-34); Mean Corpuscular Volume 99.2 fl (80-100); Mean Platelet Volume 11.1 fl (7.4-10.4); Monocytes Absolute Auto 0.4 K/mm3 (0.1-0.6); Monocytes Percent Auto 7.6 % (2.6-8.5); Neutrophils Absolute Auto 3.3 K/mm3 (1.3-6.7); Neutrophils Percent Auto 68.3 % (45.5-73.1); Platelet Count Result 143 k/mm3 (150-375); Red Blood Count 3.56 M/mm3 (4.6-6.20); Red Cell Distribution Width 13.1 % (11.5-14.5); White Blood Count 4.9 K/mm3 (4.5-10.0)
[2021-02-26 06:48] LABS: Anion Gap 7 mmol/L (8-16); Blood Urea Nitrogen 12 mg/dL (9-20); Calcium 8.5 mg/dL (8.4-10.2); Carbon Dioxide 25 mmol/L (22-30); Chloride 106 mmol/L (98-107); Estimated CRCL calculation 108 ml/min; Estimated Glomerular Filt Rate > 60; Glucose 99 mg/dL (65-110); Magnesium 2.1 mg/dL (1.6-2.3); Potassium 3.5 mmol/L (3.4-5.0); Sodium 138 mmol/L (137-145)
[2021-02-26] MEDS: BENZONATATE 100 MG CAPSULE 200 MG PO ×3 (08:20→16:15)
[2021-02-26] MEDS: ACETAMINOPHEN 325 MG TABLET 650 MG PO ×2 (08:20→12:32)
[2021-02-26] MEDS: CALCIUM CARBONATE (TUMS) 500 MG (200 MG ELEMENTAL) PO (08:20)
[2021-02-26] MEDS: PANTOPRAZOLE 40 MG TABLET PO (08:21)
[2021-02-26] MEDS: SACCHAROMYCES BOULARDII 250 MG CAPSULE PO ×3 (08:21→16:16)
[2021-02-26] MEDS: FLUTICASONE PROPIONATE 0.05% NA SPR 16 GM BTL (*BKC) 1 SPRAY NASAL (08:21)
[2021-02-26] MEDS: guaiFENesin 600 MG/DEXTROMETHORPHAN 30 MG SR TAB 12 HR 1 TAB PO (08:21)
[2021-02-26] MEDS: ENOXAPARIN 40 MG/0.4 ML SYRINGE SUB-Q (08:22)
[2021-02-26 08:36] LABS: Legionella pneumophila Ag Ur Not Detected (Not Detected)
[2021-02-26 09:50] LABS: D Dimer 0.97 ug/mL (<0.48)
--- NOTE | 2021-02-26 10:05 | WPDGIPROGNO ---
Progress Note: A&P Assessment and Plan (1) Indigestion: Code(s): K30 - Functional dyspepsia Status: Acute Assessment and Plan: Indigestion improved on PPI therapy. Suspect he has underlying GE reflux. Will continue Protonix 40mg p.o. daily along with anti-reflux measures. (2) Dysphagia: Qualifiers: Dysphagia type: unspecified Qualified Code(s): R13.10 - Dysphagia, unspecified Code(s): R13.10 - Dysphagia, unspecified Status: Acute Assessment and Plan: Because of chronic dysphagia EGD is indicated to exclude esophageal narrowing. I would defer this until pneumonia is treated. Plan for him to schedule this through the GI office after discharge. (3) Pneumonia: Qualifiers: Laterality: bilateral Lung location: lower lobe of lung Pneumonia type: due to unspecified organism Qualified Code(s): J18.9 - Pneumonia, unspecified organism Code(s): J18.9 - Pneumonia, unspecified organism Status: Acute Assessment and Plan: Pneumonia current active problem appears rather significant. COVID is being evaluated in under consideration. I would defer endoscopy until pneumonia is treated plan EGD as an outpatient electively. Subjective Date/time seen: 02/26/21 10:05 Patient unchanged this morning. Still somewhat short of breath. Tolerating diet as long as this soft. Minimal indigestion on PPI therapy. COVID results pending. Review of Systems Review of Systems: All systems reviewed & are unremarkable except as noted in HPI and below Exam Narrative: On physical exam patient is alert. Abdomen is soft and nontender. Objective Data Vital Signs Vital Signs: Vital Signs - 24 hr 02/25/21 12:57 02/25/21 14:00 02/25/21 20:00 Temperature 97.8 F 98.3 F 97.7 F Pulse Rate 83 81 93 Respiratory Rate 18 17 18 Blood Pressure 120/70 124/75 126/77 Pulse Oximetry 98 100 98 02/25/21 23:45 02/26/21 04:01 Temperature 98.0 F 97.3 F L Pulse Rate 81 82 Respiratory Rate 18 18 Blood Pressure 123/68 122/70 Pulse Oximetry 95 99 Intake/Output Intake/Output: Intake & Output 02/23/21 02/24/21 02/25/21 02/26/21 23:59 23:59 23:59 23:59 Intake Total 1510 2450 2265 100 Output Total 400 Balance 1110 2450 2265 100 Meds/Results Medications: Active Medications Generic Name Dose Route Start Last Admin Trade Name Freq PRN Reason Stop Dose Admin Acetaminophen 650 mg 02/22/21 11:12 02/26/21 08:20 Acetaminophen 325 Mg Tablet PO 650 mg Q4H PRN Administration Mild Pain (1-3) or Fever Albuterol 2 puff 02/22/21 21:41 Albuterol Sulfate (*Sp) Aerosol 1 Puff INHALATION QIDRT PRN Shortness Of Breath Benzonatate 200 mg 02/23/21 17:00 02/26/21 08:20 Benzonatate 100 Mg Capsule PO 200 mg TID APRIL Administration Calcium Carbonate 200 mg 02/24/21 23:17 02/26/21 08:20 Calcium Carbonate (Tums) 500 Mg (200 Mg Elemental) PO 200 mg Q6H PRN Administration Indigestion Enoxaparin Sodium 40 mg 02/25/21 09:00 02/26/21 08:22 Enoxaparin 40 Mg/0.4 Ml Syringe SUB-Q 40 mg DAILY APRIL Administration Fluticasone Propionate 1 spray 02/23/21 12:50 02/26/21 08:21 Fluticasone Propionate 0.05% Na Spr 16 Gm Btl (*Bkc) NASAL 1 spray Q12HR APRIL Administration Guaifenesin/Dextromethorphan 1 tab 02/23/21 09:00 02/26/21 08:21 Guaifenesin 600 Mg/Dextromethorphan 30 Mg Sr Tab 12 Hr PO 1 tab Q12HR APRIL Administration Ceftriaxone Sodium/Dextrose 1 gm in 50 mls @ 100 mls/hr 02/23/21 09:00 02/26/21 08:22 Rocephin 1 Gm/D5w 50 Ml IVPB 100 mls/hr Q24H APRIL Administration Azithromycin 500 mg in 250 mls @ 250 mls/hr 02/23/21 09:00 02/26/21 09:16 Zithromax IVPB 250 mls/hr Q24H APRIL Administration Melatonin 5 mg 02/24/21 21:00 02/25/21 20:51 Melatonin 5 Mg Tablet PO 5 mg HS APRIL Administration Ondansetron HCl 4 mg 02/22/21 11:12 02/24/21 21:34 Ondansetron Inj 4 Mg/2 Ml Vial I
[2021-02-26 10:19] LABS: CRP 6.4 mg/dL (<1.0); Lactate Dehydrogenase 457 U/L (313-618)
[2021-02-26 10:37] LABS: Pneumococcal Antigen Urine Not Detected (Not Detected)
--- NOTE | 2021-02-26 10:38 | PM.PNPUL ---
Progress Note: A&P Assessment and Plan (1) Pneumonia: Qualifiers: Laterality: bilateral Lung location: lower lobe of lung Pneumonia type: due to unspecified organism Qualified Code(s): J18.9 - Pneumonia, unspecified organism Code(s): J18.9 - Pneumonia, unspecified organism Status: Acute Assessment and Plan: 65-year-old man with a no past medical history presented with febrile illness and lung infiltrates consistent with atypical pneumonia. In addition the patient was found to have or has developed thrombocytopenia, elevated bilirubin in the absence of transaminitis. His COVID test has been negative. The patient traveled to [place] and returned home about 1 month ago. Etiology of atypical pneumonia unclear. Legionella testing has been negative. Will order mycoplasma and Q fever titers. The patient wants to go home. We would like to repeat a chest x-ray prior to discharging him home. I would suggest doxycycline 100 mg p.o. b.i.d. for 10 days. The patient will need to have follow-up with his primary care provider. (2) Dysphagia: Qualifiers: Dysphagia type: unspecified Qualified Code(s): R13.10 - Dysphagia, unspecified Code(s): R13.10 - Dysphagia, unspecified Status: Acute (3) Thrombocytopenia: Code(s): D69.6 - Thrombocytopenia, unspecified Status: Acute (4) Hyperbilirubinemia: Code(s): E80.6 - Other disorders of bilirubin metabolism Status: Acute Subjective Date/time seen: 02/26/21 10:38 Patient feels better. Has been afebrile for more than 2 days. Continues to have a mild cough, remaining on room air, no shortness of breath no other respiratory symptoms. Evaluated by GI for dysphagia. Further workup will be completed on an outpatient basis. Patient willing to go home. Review of Systems Review of Systems: All systems reviewed & are unremarkable except as noted in HPI and below (H and P and bellow) Exam Narrative: GENERAL APPEARANCE: Well developed, well nourished, alert and cooperative, and appears to be in no acute distress SKIN: Inspection of the skin reveals no rashes, ulcerations or petechiae. HEENT: Sclerae anicteric and conjunctivae pink and moist. Extraocular movements were intact and pupils were equal. NECK: Supple. There was no thyroid enlargement, and no tenderness, or masses were felt. LUNGS: Auscultation of the lungs revealed rare crackles at bases left more than R, no wheezing. CARDIAC: There was a regular rate and rhythm without any murmurs, gallops, rubs. ABDOMEN: Soft and nontender with normal bowel sounds. There was no organomegaly. LYMPH NODES: No lymphadenopathy was appreciated in the neck. EXTREMITIES: No cyanosis, clubbing or edema. NEUROLOGIC: Alert and oriented x 3. Normal affect. Objective Data Vital Signs Vital Signs: Vital Signs - 24 hr 02/25/21 12:57 02/25/21 14:00 02/25/21 20:00 Temperature 36.6 C 36.8 C 36.5 C Pulse Rate 83 81 93 Respiratory Rate 18 17 18 Blood Pressure 120/70 124/75 126/77 Pulse Oximetry 98 100 98 02/25/21 23:45 02/26/21 04:01 Temperature 36.7 C 36.3 C L Pulse Rate 81 82 Respiratory Rate 18 18 Blood Pressure 123/68 122/70 Pulse Oximetry 95 99 Intake/Output Intake/Output: Intake & Output 02/23/21 02/24/21 02/25/21 02/26/21 23:59 23:59 23:59 23:59 Intake Total 1510 2450 2265 100 Output Total 400 Balance 1110 2450 2265 100 Meds/Results Medications: Active Medications Generic Name Dose Route Start Last Admin Trade Name Freq PRN Reason Stop Dose Admin Acetaminophen 650 mg 02/22/21 11:12 02/26/21 08:20 Acetaminophen 325 Mg Tablet PO 650 mg Q4H PRN Administration Mild Pain (1-3) or Fever Albuterol 2 puff 02/22/21 21:41 Albuterol Sulfate (*Sp) Aerosol 1 Puff INHALATION QIDRT PRN Shortness Of Breath Benzonatate 200 mg 02/23/21 17:00 02/26/21 08:20 Benzonatate 100 Mg Capsule PO 200 mg TID APRIL Administration
[2021-02-26 14:00] VITALS: BP 129/67; PULSE 88; RESP 20; TEMP 36.3; O2SAT 98
--- NOTE | 2021-02-26 18:28 | PM.DS ---
DS: Admitting Diagnosis Discharge Date 02/26/21 Admitting Diagnosis (1) Sepsis: Code(s): A41.9 - Sepsis, unspecified organism Status: Acute (2) Pneumonia: Code(s): J18.9 - Pneumonia, unspecified organism Status: Acute (3) Thrombocytopenia: Code(s): D69.6 - Thrombocytopenia, unspecified Status: Acute (4) Person under investigation for COVID-19: Code(s): Z20.822 - Contact with and (suspected) exposure to COVID-19 Status: Acute (5) Hyperbilirubinemia: Code(s): E80.6 - Other disorders of bilirubin metabolism Status: Acute DS: Discharge Diagnosis Discharge Diagnosis (1) Sinusitis nasal: Code(s): J32.9 - Chronic sinusitis, unspecified Status: Acute (2) Hyperbilirubinemia: Code(s): E80.6 - Other disorders of bilirubin metabolism Status: Acute (3) Pneumonia: Qualifiers: Laterality: bilateral Lung location: lower lobe of lung Pneumonia type: due to unspecified organism Qualified Code(s): J18.9 - Pneumonia, unspecified organism Code(s): J18.9 - Pneumonia, unspecified organism Status: Acute (4) Sepsis: Code(s): A41.9 - Sepsis, unspecified organism Status: Acute (5) Person under investigation for COVID-19: Code(s): Z20.822 - Contact with and (suspected) exposure to COVID-19 Status: Acute (6) Dysphagia: Qualifiers: Dysphagia type: unspecified Qualified Code(s): R13.10 - Dysphagia, unspecified Code(s): R13.10 - Dysphagia, unspecified Status: Acute DS: Summary Hospital Course Reason for hospitalization: rhinorrhea, sinus congestion, chills, fever to 101? F, cough productive of dark phlegm, body aches, and mild shortness of breath Hospital Course: 65-year-old male admitted with respiratory symptoms. He was worked up extensively including testing for for coronavirus, mycoplasma, Q fever, Legionella, strep pneumococcal, Histoplasma and influenza. Unfortunately no definitive diagnosis could be yielded, however, patient was treated with Rocephin and azithromycin during this hospitalization with some improvement. Pulmonology was consulted. It was recommended that he be discharged home on doxycycline for 10 additional days. Admitting labs did look suspicious for viral infection although COVID was negative by PCR testing x2. Patient had lymphopenia, elevated ferritin, elevated CRP, elevated D-dimer, which did improve during the course of this hospitalization. Additionally, patient's respiratory symptoms also improved and he was discharged on RA. Patient was noted during this admission to have difficulty with swallowing. GI was consulted. It is recommended that he follow-up with the GI specialist after resolution of his pulmonary symptoms. Patient given indications to follow-up with PCP for ongoing care testing for mycoplasma and Q fever still pending at the time of discharge. Time spent discussing smoking cessation with patient: more than 10 minutes Status at Discharge Functional status at discharge: independent ambulation Overall status at discharge: patient is back to baseline Time Spent with Patient Time attestation: Total time spent providing and/or coordinating discharge services: Time spent: Greater than 30 minutes Exam Narrative: GEN: NAD, AAOx3 cooperative HEENT: NCAT, MMM, EOMI Neck: no JVD Lungs: No acute distress symmetric chest rise Abd: soft, NT, ND Ext: moves all, no cyanosis, no clubbing, no edema Neuro: Cranial nerves intact no focal neurological deficits appreciated Psych: Mood and affect congruent judgment insight intact DS: Data Data Completed and Pending Labs on day of discharge: Labs from last 24 hours 02/26/21 02/26/21 02/26/21 11:34 11:34 09:23 WBC RBC Hgb Hct MCV MCH MCHC RDW Plt Count MPV Immature Gran % (Auto) Neut % (Auto) Lymph % (Auto) [place] % (Auto) Eos % (Auto) Baso % (Au
[2021-03-02 15:39] LABS: Mycoplasma IgM Antibody Titer 121 U/mL (<770)
== END 2021-02-26 19:00 | disposition home or self-care (01) | DRG 871 ==
LOC: ANHED 11:20 → ANH3MEDSUR 11:27
PROVIDERS: Internal Medicine; Internal Medicine Pulmonary Disease; Physician Assistant; Admitting Provider Internal Medicine; Emergency Provider Emergency Medicine; PCP Family Medicine; Visit Provider Hospitalist
DX: A41.9 Sepsis, unspecified organism (principal); J18.9 Pneumonia, unspecified organism; Z20.822 Contact with and (suspected) exposure to COVID-19; R09.02 Hypoxemia; E80.6 Other disorders of bilirubin metabolism; D69.6 Thrombocytopenia, unspecified; J32.9 Chronic sinusitis, unspecified; R13.10 Dysphagia, unspecified; K30 Functional dyspepsia; Z90.49 Acquired absence of other specified parts of digestive tract
CPT/HCPCS: 36415; 71045; 71046; 71275; 74018; 80048; 80053; 81003; 82248; 82607; 82728; 82746; 83605; 83615; 83735; 84145; 84484; 85025; 85027; 85055; 85380; 86140; 86638; 86738; 87040; 87070; 87077; 87081; 87186; 87205; 87449; 87804; 87899; 93005; 94667; 94668; 96361; 96365; 96366; 96367; 96375; 99232; 99253; 99285; A9270; C9803; G0378; J0456; J0696; J1650; J2405; J3370; J7030; J7040; Q9967; U0003; U0005

== ENCOUNTER 2024-05-21 08:11 | Outpatient (CLI) | payer MEDICARE, SELFPAY ==
--- OUTSIDE RECORDS SUMMARY | 2024-05-21 08:22 | XMS_ITS | Referral Summary ---
Author Organization [facility] [place] [address] Address [address] [place] [phone] Care Team Providers Care Circus Laborer Name Role Phone Aaron Briones MD Primary Care Provider +1 [phone] Allergies No known active allergies Medications No known medications Active Problems No known active problems Social History Tobacco Use Types Packs/Day Years Used Date Smoking Tobacco: Never Personal Safety Answer Date Recorded Getting School Help Needed Not on file 06/24 Sex and Gender Information Value Date Recorded Sex Assigned at Not on file Legal Sex Male 8:03 AM CDT Gender Identity Not on file Sexual Orientation Not on file Last Filed Vital Signs Vital Sign Reading Time Taken Comments Blood Pressure 128/72 02/22/2021 8:17 AM CDT Pulse 125 02/22/2021 10:44 AM CDT Temperature 37.4 ??C (99.3 ??F) 02/22/2021 8:17 AM CD T Respiratory Rate 20 02/22/2021 8:17 AM CDT Oxygen Saturation 93% 02/22/2021 10: 44 AM CDT Inhaled Oxygen Concentration - - Weight 99.7 kg (219 lb 12.8 oz) 02/22/2021 8:17 AM CDT Height 190.5 cm (6' 3 ) 02/22/2021 8:17 AM CDT Body Mass Index 27.47 02/22/2021 8:17 AM CDT Plan of Treatment Not on file Insurance [facility] CHOICE PLUS Care Teams Circus Laborer Relationship Specialty Start Date End Date Aaron Briones MD PCP - General Family Medicine 02/22/21
--- OUTSIDE RECORDS SUMMARY | 2024-05-21 08:22 | XMS_ITS | Clinical Summary ---
Author Organization [facility] Address [address] [facility] Attn: Epic Prelude ADT [place] [address] Care Team Providers Care Chief Construction Inspector Name Role Phone Unavailable Primary Care Provider Unavailabl e Medications traZODone (DESYREL) 50 mg tablet Take 1 Tablet (50 mg) by mouth daily at bedtime as needed. 60 Tablet 2 05/20/2024 12:19 PM ORTHOTIC ASSISTANT 05/17/2024 Active Ciclopirox 8 % Solution Apply to affected area daily at bedtime for 4 weeks. 6.6 mL 05/20/2024 12:19 PM ORTHOTIC ASSISTANT 05/17/2024 Active doxycycline (MONODOX) 100 mg Capsule Take 1 Capsule (100 mg) by mouth 2 times daily for 10 days. 20 Capsule 05/20/2024 12:19 PM ORTHOTIC ASSISTANT 05/17/2024 05/30/19 Active Encounters Date Type Department Care Team Description 05/07/2024 External Device Data [facility] ABSTRACTION Provider, Abstract 03/26/2024 External Device Data [facility] ABSTRACTION Provider, Abstract from Last 3 Months Immunizations Immunization Administration Dates Next Due (COMIRNATY)(12 YR UP) COVID- 19 VACCINE, MRNA, SPIKE PROTEIN, LNP, CK(PF) 30 MCG/0.3 ML IM SUSP 02/09/2024,03/22/2023 INFLUENZA VACCINE HIGH DOSE QUADRIVALENT 65 YR UP PF IM 03/07/2023 INFLUENZA VACCINE HIGH DOSE TRIVALENT SPLIT VIRUS, (65 YR UP), 0.5ML (PF), IM 02/17/2024 Social History Tobacco Use Types Packs/Day Years Used Date Smoking Tobacco: Never Assessed Sex and Gender Information Value Date Recorded Sex Assigned at Not on file Legal Sex Male 3:27 PM CDT Gender Identity Not on file Sexual Orientation Not on file Plan of Treatment Health Maintenance Due Date Last Done Comments DTAP/TDAP/TD VACCINES (1 - Tdap) 1974 COLORECTAL SCREENING 2000 Colorectal Cancer Screening 2000 FIT-DNA Q 3 years 2000 FIT/FOBT Q 1 year 2000 Flex Sig/CT Colonography Q 5 years 2000 PNEUMOCOCCAL VACCINE 65+ YEA RS (1 of 1 - PCV) 2005 ZOSTER VACCINE (1 of 2) 2005 RSV VACCINE (60+ or ) (1 - 1-dose 75+ series) 2030 COVID-19 Vaccine Completed 02/09/2024, 03/22/2023 INFLUENZA VACCINE Completed 02/17/2024, 03/07/2023 Insurance RX CASEY PLANS (INTERNAL) [facility] RX OPTUM RX Member Subscriber Plan / Payer (Ef fective for All Dates) Name:FABIAN REGALADO Relation to Subscriber:Self Name:Fabian Regalado Payer ID:Not on file Type:RX Commercial Address: [place]
--- OUTSIDE RECORDS SUMMARY | 2024-05-21 08:22 | XMS_ITS | Clinical Summary ---
Author Organization [facility] [place] [address] Address [address] [place] [id number] Care Team Providers Care Pencils Washer Name Role Phone Aaron Briones MD Primary Care Provider [phone] [phone] Allergies No known active allergies Medications No [...] on file Sexual Orientation Not on file Obstetrics History Last Filed Vital Signs Vital Sign Reading [...] Plan of Treatment Not on file Insurance [facility] CHOICE PLUS [facility] HMO/PPO Address: [facility] [address] [place] [address] Care Teams Pencils Washer Relationship Specialty Start Date End Date Aaron Briones MD PCP - General Family Medicine 02/22/21
[2024-05-21 13:36] LABS: Basophils Percent Auto 0.4 % (0.2-1.2); Eosinophils Percent Auto 0.6 % (0-4.4); Hematocrit 42.9 % (42.0-52.0); Hemoglobin 13.4 g/dL (14.0-18.0); Immature Granulocyte Absolute 0.03 K/mm3 (0.00-0.031); Immature Granulocyte Percent A 0.6 % (0-0.5); Lymphocytes Absolute Auto 2.41 K/mm3 (0.9-3.2); Lymphocytes Percent Auto 50.7 % (18.3-44.2); Mean Corpuscular HGB Conc 31.2 g/dl (32-36); Mean Corpuscular Hemoglobin 31.3 pg (26-34); Mean Corpuscular Volume 100.2 fl (80-100); Mean Platelet Volume 11.7 fl (7.4-10.4); Monocytes Absolute Auto 0.4 K/mm3 (0.1-0.6); Monocytes Percent Auto 7.8 % (2.6-8.5); Neutrophils Absolute Auto 1.9 K/mm3 (1.3-6.7); Neutrophils Percent Auto 39.9 % (45.5-73.1); Platelet Count Result 146 k/mm3 (150-375); Red Blood Count 4.28 M/mm3 (4.6-6.20); Red Cell Distribution Width 16.5 % (11.5-14.5); White Blood Count 4.8 K/mm3 (4.5-10.0)
[2024-05-21 15:27] LABS: Alanine Aminotransferase 28 U/L (6-50); Albumin Level 3.9 g/dL (3.5-5.1); Alkaline Phosphatase 51 U/L (38-126); Anion Gap 5 mmol/L (4-12); Aspartate Amino Transferase 33 U/L (17-59); Bilirubin,Total 1.8 mg/dL (0.2-1.3); Blood Urea Nitrogen 11 mg/dL (9-20); Carbon Dioxide 30 mmol/L (22-30); Chloride 104 mmol/L (98-107); Cholesterol 155 mg/dL (0-200); Estimated Glomerular Filt Rate > 60; Glucose 74 mg/dL (65-110); HDL Direct 27 mg/dL; Potassium 3.9 mmol/L (3.4-5.0); Sodium 139 mmol/L (137-145); Triglycerides 150 mg/dL (<150)
[2024-05-21 15:38] LABS: LDL Cholesterol Direct 106 mg/dL
== END 2024-05-21 08:12 | disposition home or self-care (01) ==
LOC: ANHGOSHLAB 08:13
PROVIDERS: PCP Nurse Practitioner Family; Visit Provider Nurse Practitioner Family
DX: R13.10 Dysphagia, unspecified (principal); D69.6 Thrombocytopenia, unspecified; E80.6 Other disorders of bilirubin metabolism; E78.5 Hyperlipidemia, unspecified; Z12.5 Encounter for screening for malignant neoplasm of prostate
CPT/HCPCS: 36415; 80053; 80061; 84153; 84443; 85025; G0103

== ENCOUNTER 2024-08-05 14:15 | Outpatient (CLI) | payer MEDICARE, SELFPAY ==
--- OUTSIDE RECORDS SUMMARY | 2024-08-05 15:55 | XMS_ITS | Clinical Summary ---
Author Organization [facility] Address [address] [facility] Attn: Epic Prelude ADT [place] [address] Care Team Providers Care Cloth Laminating Supervisor Name Role Phone Unavailable Primary Care Provider Unavailabl e Medications traZODone (DESYREL) 50 mg tablet Take 1 Tablet (50 mg) by mouth daily at bedtime as needed. 60 Tablet 2 05/20/2024 12:19 PM GEOLOGICAL ENGINEERING TEACHER 5 Active Ciclopirox 8 % Solution Apply to affected area daily at bedtime for 4 weeks. 6.6 mL 05/20/2024 12:19 PM GEOLOGICAL ENGINEERING TEACHER 5 Active metroNIDAZOLE (METROGEL) 1 % Gel Apply topically to affected area(s) once daily at bedtime. 60 Gram 2 06/17/2024 6:03 PM GEOLOGICAL ENGINEERING TEACHER 5 Active Encounters Date Type Department Care Team Description 05/07/2024 External Device Data [facility] ABSTRACTION Provider, Abstract from Last 3 Months Immunizations Immunization Administration Dates Next Due (COMIRNATY)(12 YR UP) COVID- 19 VACCINE, MRNA, SPIKE PROTEIN, LNP, CK(PF) 30 MCG/0.3 ML IM SUSP 02/09/2024,03/22/2023 (PREVNAR 20)(6 WKS UP) PNEUM OCOCCAL CONJUGATE VACCINE 20-VALENT (PCV20), POLYSACCHARIDE SPN245 CONJUGATE, ADJUVANT 0.5 ML (PF) IM 05/26/2024 INFLUENZA VACCINE HIGH DOSE QUADRIVALENT 65 YR [...] Flex Sig/CT Colonography Q 5 years 2000 ZOSTER VACCINE (1 of 2) 2005 COVID-19 Vaccine (3 - season) 2024, 03/22/2023 RSV VACCINE (60+ or ) (1 - 1-dose 75+ series) 2030 INFLUENZA VACCINE Completed 02/17/2024, 03/07/2023 PNEUMOCOCCAL VACCINE 50+ YEARS Completed 05/26/2024 Insurance RX CASEY PLANS (INTERNAL) [facility] RX [employer] Medicare Part B RX OPT[employer] RX Member Subscriber Plan / Payer (Ef fective for All Dates) Name:Fabian Regalado Relation to Subscriber:Self Name:Fabian Regalado Payer ID:Not on file Group ID:[id number] Type:RX Commercial Address: [address] RX OPTUM RX Member Subscriber Plan / Payer (Ef fective for All Dates) Name:FABIAN REGALADO Relation to Subscriber:Self Name:Fabian Regalado R Payer ID:Not on file Type:RX Commercial Address: [address]
--- OUTSIDE RECORDS SUMMARY | 2024-08-05 15:55 | XMS_ITS | Referral Summary ---
Author Organization [facility] [place] [address] Address [address] [place] [phone] Care Team Providers Care Hot Tamale Man Name Role Phone Aaron Briones MD Primary Care Provider [phone] [phone] Allergies No known active allergies Medications No [...] 125 02/22/2021 10:44 AM CDT Temperature 37.4 C (99.3 F) 02/22/2021 8:17 AM CDT Respiratory Rate 20 02/22/2021 8:17 AM CDT Oxygen Saturation 93% 02/22/2021 10: 44 AM CDT Inhaled Oxygen Concentration - - Weight 99.7 kg (219 lb 12.8 oz) 02/22/2021 8:17 AM CDT Height 190.5 cm (6' 3 ) 02/22/2021 8:17 AM CDT Body Mass Index 27.47 02/22/2021 8:17 AM CDT Plan of Treatment Not on file Insurance [facility] CHOICE PLUS [facility] HMO/PPO Address: [facility] [address] [place] [address] Care Teams Hot Tamale Man Relationship Specialty Start Date End Date Aaron Briones MD PCP - General Family Medicine 02/22/21
--- OUTSIDE RECORDS SUMMARY | 2024-08-05 15:55 | XMS_ITS | Clinical Summary ---
Author Organization [facility] [place] [address] Address [address] [place] [phone] Care Team Providers Care Board Of Directors Name Role Phone Aaron Briones MD Primary Care Provider [phone] [phone] Allergies No known active allergies Medications No [...] Plan of Treatment Not on file Insurance [facility] CHOICE PLUS Care Teams Board Of Directors Relationship Specialty Start Date End Date Aaron Briones MD PCP - General Family Medicine 02/22/21
== END 2024-08-05 14:16 | disposition home or self-care (01) ==
LOC: ANHGOSHLAB 14:16
PROVIDERS: PCP Nurse Practitioner Family; Visit Provider Nurse Practitioner Family
DX: E03.9 Hypothyroidism, unspecified (principal)
CPT/HCPCS: 36415; 84443

== ENCOUNTER 2024-09-11 00:01 | Day surgery (SDC) | payer MEDICARE, SELFPAY ==
[2024-09-05 08:27] VITALS: BMI 28.0
--- OUTSIDE RECORDS SUMMARY | 2024-09-11 00:04 | XMS_ITS | Referral Summary ---
Author Organization [facility] [place] [address] Address [address] [place] [phone] Care Team Providers Care Director Of Marketing Operations Name Role Phone Aaron Briones MD Primary Care Provider [phone] [phone] Allergies No known active allergies Medications No [...] Plan of Treatment Not on file Insurance [facility]PPO Address: [facility] [address] [place] [address] Care Teams Director Of Marketing Operations Relationship Specialty Start Date End Date Aaron Briones MD PCP - General Family Medicine 02/22/21
--- OUTSIDE RECORDS SUMMARY | 2024-09-11 00:04 | XMS_ITS | Clinical Summary ---
Author Organization [facility] [place] [address] Address [address] [place] [phone] Care Team Providers Care Transit Survey Worker Name Role Phone Aaron Briones MD Primary Care Provider [phone] [phone] Allergies No known active allergies Medications No [...] Plan of Treatment Not on file Insurance [facility] CHOICE PLUS Care Teams Transit Survey Worker Relationship Specialty Start Date End Date Aaron Briones MD PCP - General Family Medicine 02/22/21
--- OUTSIDE RECORDS SUMMARY | 2024-09-11 00:04 | XMS_ITS | Clinical Summary ---
Author Organization [facility] Address [address] [facility] Attn: Epic Prelude ADT [place] [address] Care Team Providers Care Federal Java Developer Name Role Phone Unavailable Primary Care Provider Unavailabl e Medications traZODone (DESYREL) 50 mg tablet Take 1 Tablet (50 mg) by mouth daily at bedtime as needed. 60 Tablet 2 05/20/2024 12:19 PM X RAY PHYSICIAN 5 Active Ciclopirox 8 % Solution Apply to affected area daily at bedtime for 4 weeks. 6.6 mL 05/20/2024 12:19 PM X RAY PHYSICIAN 5 Active metroNIDAZOLE (METROGEL) 1 % Gel Apply topically to affected area(s) once daily at bedtime. 60 Gram 2 06/17/2024 6:03 PM X RAY PHYSICIAN 5 Active Immunizations Immunization Administration Dates Next Due (COMIRNATY)(12 YR UP) COVID- 19 VACCINE, MRNA, SPIKE PROTEIN, LNP, CK(PF) 30 MCG/0.3 ML IM SUSP 02/09/2024,03/22/2023 (PREVNAR 20)(6 WKS UP) PNEUM OCOCCAL CONJUGATE VACCINE 20-VALENT (PCV20), POLYSACCHARIDE [id number] CONJUGATE, ADJUVANT 0.5 ML (PF) IM 05/26/2024 [...] of 2) 2005 COVID-19 Vaccine (3 - 2023- season) 2024, 03/22/2023 RSV VACCINE (60+ or [...]
[2024-09-11 08:43] VITALS: BP 117/74; PULSE 82; RESP 20; TEMP 36.6; O2SAT 100; BMI 28.1
[2024-09-11] MEDS: LACTATED RINGERS 1,000 ML 150 ML IV CONT (09:04)
--- NOTE | 2024-09-11 09:11 | SUR.PREOP ---
Patient was informed that is delayed in schedule. Patient acknowledged update. Call light is in reach to notify me if patient has any questions.
--- NOTE | 2024-09-11 10:33 | WPDANESEPPF ---
Anes - Initial Pre Proc Eval Procedure: Operation Date: 09/11/24 09:45 Proposed Procedures p Esophagogastroduodenoscopy&Screen Colon - Klaus Sequeira MD Date/Time: 09/11/24 10:33 Surgeon: Klaus Sequeira MD Pre Op Diagnosis: screening colon, dypshagia, dyspepsia Patient Data Age: 69 Gender: M Height: 1.91 m Weight: 102.3 kg Last Vital Signs Temp 36.6 C 09/11/24 08:43 Pulse 82 09/11/24 08:43 Resp 20 09/11/24 08:43 BP 117/74 09/11/24 08:43 Pulse Ox 100 09/11/24 08:43 O2 Del Method Room Air 09/11/24 08:43 Allergies Allergy/AdvReac Type Severity Reaction Status Date / Time ciprofloxacin Allergy Unknown Skin Verified 09/11/24 08:47 Reaction Home Medications Medication Instructions Recorded Confirmed Type pantoprazole 40 mg tablet,delayed 40 mg PO QAM 30 days #30 tabs 02/26/21 09/05/24 Rx release metronidazole 1 % topical gel 1 applic topical QHS #60 grams 06/17/24 Rx Patient hx anesthesia problems: none Family hx anesthesia problems: none Results Review: All pre-operative results and documents have been reviewed as part of the pre-operative evaluation. [facility] Past Medical History Medical History Pneumonia History of seizure Hepatitis A (1992) Leg fracture, left Surgical History Surgical History H/O left inguinal hernia repair Hx of cholecystectomy History of tonsillectomy History of laparoscopic cholecystectomy History of open reduction and internal fixation (ORIF) procedure Left lower extremity. History of left inguinal hernia repair Family History Family History Father Malignant neoplasm of prostate Social History Social History Social History: The patient lives in [place] with his Rashmi. He works for [employer]. Lifelong nonsmoker. No alcohol or illicit substance abuse. He designates his Rashmi as his surrogate decision maker and he wishes to be a full code. Smoking status: Never smoker Alcohol intake: never Substance use type: does not use Living arrangements: with family Spiritual care concerns: No Anes - Eval Final PreProcedure Day of Procedure 09/11/24 10:33 Patient weight: overweight Heart: regular rate and rhythm Lungs: clear to auscultation Airway: Mallampati scale class II Neurological: alert and oriented Last oral intake: >/= 8 hours ASA classification: II Emergent: no Anesthetic plan: proceed Anesthesia type and monitoring: general GIVS and standard monitoring Results Review: All pre-operative results and documents have been reviewed as part of the pre-operative evaluation. Informed Consent: The patient's anesthetic plan and its attendant risks and benefits were discussed with the patient/family/POA. Questions were solicited and answers provided to the satisfaction of the patient/family/POA.
--- NOTE | 2024-09-11 10:50 | PM.IMHP ---
H&P: HPI History of Present Illness Date/Time: 09/11/24 10:50 Chief Complaint: Dysphagia-screening colonoscopy Narrative: patient has been experiencing dysphagia to solid food for several years, not getting worse, not associated with constant heartburn, chest pain or weight loss. He never had an EGD. When he has occasional episodes of heartburn he takes Tums but never took PPIs on a regular basis. In addition he is also referred for screening colonoscopy. His last colonoscopy was more than 10 y Review of Systems Review of Systems: All systems reviewed & are unremarkable except as noted in HPI and below PMFSH Past Medical History Medical History Pneumonia History of seizure Hepatitis A (1992) Leg fracture, left Surgical History Surgical History H/O left inguinal hernia repair Hx of cholecystectomy History of tonsillectomy History of laparoscopic cholecystectomy History of open reduction and internal fixation (ORIF) procedure Left lower extremity. History of left inguinal hernia repair Family History Family History Father Malignant neoplasm of prostate Social History Social History Social History: The patient lives in [place] with his Rashmi. He works for [employer]. Lifelong nonsmoker. No alcohol or illicit substance abuse. He designates his Rashmi as his surrogate decision maker and he wishes to be a full code. Smoking status: Never smoker Alcohol intake: never Substance use type: does not use Living arrangements: with family Spiritual care concerns: No Meds Home Medications and Allergies Home Medications Medication Instructions Recorded Confirmed Type pantoprazole 40 mg tablet,delayed 40 mg PO QAM 30 days #30 tabs 02/26/21 09/05/24 Rx release metronidazole 1 % topical gel 1 applic topical QHS #60 grams 06/17/24 Rx Allergies Allergy/AdvReac Type Severity Reaction Status Date / Time ciprofloxacin Allergy Unknown Skin Verified 09/11/24 08:47 Reaction Vital Signs Vital Signs - 24 hr 09/11/24 08:43 Temperature 97.9 F Pulse Rate 82 Respiratory Rate 20 Blood Pressure 117/74 Pulse Oximetry 100 Oxygen Delivery Room Air Exam Const: General: cooperative and healthy appearing Resp: Effort & Inspection: normal respiratory effort and able to speak in complete sentences Auscultation: clear to auscultation bilaterally Cardio: Rate: regular rate Rhythm: regular rhythm GI: Inspection: normal to inspection GI Palp: No No hepatosplenomegaly present Auscultation: normal bowel sounds Rectal Exam: deferred Skin: General skin exam: normal color Psych: Appearance: grossly normal Mental Status: mental status grossly normal Assessment and Plan Assessment and plan (1) Dysphagia: Qualifiers: Dysphagia type: unspecified Qualified Code(s): R13.10 - Dysphagia, unspecified Code(s): R13.10 - Dysphagia, unspecified Status: Acute Assessment and Plan: The patient is deemed a good candidate for the procedures. Consent signed. Will proceed.
--- NOTE | 2024-09-11 11:14 | SUR.OPER ---
EGD: [id number] COLON: Start 1111
[2024-09-11] MEDS: SIMETHICONE ORAL SUSPENSION 20 MG/0.3 ML 30 ML BOTTLE 0.6 ML IRRIGATION (11:16)
[2024-09-11 11:30] VITALS: BP 120/65; PULSE 90; RESP 26; O2SAT 100
[2024-09-11 11:40] VITALS: BP 117/78; PULSE 72; RESP 17; O2SAT 100
[2024-09-11 11:50] VITALS: BP 124/86; PULSE 72; RESP 22; O2SAT 100
== END 2024-09-11 11:57 | disposition home or self-care (01) ==
PROVIDERS: PCP Nurse Practitioner Family; Referring Provider Nurse Practitioner Family; Visit Provider Internal Medicine Gastroenterology
PROC: 0DJ08ZZ Inspection of Upper Intestinal Tract, Via Natural or Artificial Opening Endoscopic (ICD-10-PCS; CPT 45378; principal; 2024-09-11 09:45)
DX: Z12.11 Encounter for screening for malignant neoplasm of colon (principal); K29.70 Gastritis, unspecified, without bleeding; R13.10 Dysphagia, unspecified
CPT/HCPCS: 43239; G0121; 88305; J2003; J2704; J7120